=== PATIENT | female | born 1950 | race Caucasian/White ===

== ENCOUNTER 2018-06-29 10:33 | Emergency (ER) | payer BC, OTHER ==
[~2018-06-29] VITALS: Ht 157.5 cm; Wt 54.4 kg
[2018-06-29] MEDS ORDERED: HYDROCODONE/APAP 5/325MG 1 EACH TABLET ONE (10:53)
[2018-06-29] MEDS: HYDROCODONE/APAP 5/325MG 1 EACH TABLET PO ONE (10:56)
[2018-06-29] MEDS ORDERED: LIDOCAINE 1% INJ 50 ML MDV IJ ONE (11:03)
[2018-06-29] MEDS ORDERED: GELATIN SPONGE,ABSORBABLE 1 SPONGE SPONGE TP ONE (11:21)
[2018-06-29 11:38] VITALS: BP 125/79
--- NOTE | 2018-06-29 11:39 | NUR ---
dressing on left 4th finger intact no bleeding noted. for discharge- [facility] given verbalized understanding. Home ambulatory-stable condition
== END 2018-06-29 11:39 | disposition home or self-care (01) ==
LOC: ER 10:34
DX: S61.301A Unspecified open wound of left index finger with damage to nail, initial encounter (principal); I10 Essential (primary) hypertension; J45.909 Unspecified asthma, uncomplicated; Z98.890 Other specified postprocedural states; Z90.89 Acquired absence of other organs; W26.0XXA Contact with knife, initial encounter; Y93.89 Activity, other specified; Y92.098 Other place in other non-institutional residence as the place of occurrence of the external cause; Y99.8 Other external cause status
CPT/HCPCS: A4606; A6402; A6403; J3490; Z7610